=== PATIENT | female | born 1945 | race Asian ===

== ENCOUNTER 2017-12-02 15:09 | Emergency (ER) | payer MEDICARE ==
[~2017-12-02] VITALS: Ht 1555.5 cm; Wt 47.0 kg
[2017-12-02 16:10] LABS: BASOPHILS # (AUTO) 0.1 X10'3 (0-0.2); BASOPHILS % (AUTO) 1.7 % (0-1); EOSINOPHILS # (AUTO) 0.2 X10'3 (0-0.9); EOSINOPHILS % (AUTO) 8.3 % (0-6); LYMPHOCYTES # (AUTO) 0.9 X10'3 (1.1-4.8); LYMPHOCYTES % (AUTO) 29.6 % (21-51); MEAN CORPUSCULAR HEMOGLOBIN 31.7 PG (27.0-31.0); MEAN CORPUSCULAR HGB CONC 33.2 % (33.0-36.5); MEAN CORPUSCULAR VOLUME 95.3 FL (78-98); MEAN PLATELET VOLUME 9.1 FL (7.4-10.4); MONOCYTES # (AUTO) 0.3 X10'3 (0-0.9); MONOCYTES % (AUTO) 9.6 % (2-12); NEUTROPHILS # (AUTO) 1.5 X10'3 (1.8-7.7); NEUTROPHILS % (AUTO) 50.8 % (42-75); PLATELET COUNT 348 X10'3 (140-440); RED BLOOD COUNT 2.22 X10'6 (4.20-5.60); RED CELL DISTRIBUTION WIDTH 20.2 % (11.5-14.5)
[2017-12-02 16:19] LABS: HEMATOCRIT 21.2 % (35.0-45.0)
[2017-12-02 16:24] LABS: ALANINE AMINOTRANSFERASE 74 U/L (12-78); ALBUMIN 3.4 G/DL (3.4-5.0); ALBUMIN/GLOBULIN RATIO 1.5 (1.1-1.5); ALKALINE PHOSPHATASE 52 IU/L (46-116); ANION GAP 5 (8-16); ASPARTATE AMINO TRANSFERASE 53 U/L (10-37); BILIRUBIN,TOTAL 0.9 MG/DL (0.1-1.0); BLOOD UREA NITROGEN 10 MG/DL (7-18); BUN/CREATININE RATIO 16.7 (6.6-38.0); CALCIUM 8.5 MG/DL (8.5-10.1); CHLORIDE 105 MMOL/L (99-107); GLUCOSE 98 MG/DL (70-104); SODIUM 140 MMOL/L (135-145); TOTAL CARBON DIOXIDE 30.2 MMOL/L (24-32); TOTAL PROTEIN 5.7 G/DL (6.4-8.2); eGFR > 90 ML/MIN
[2017-12-02] MEDS ORDERED: CHOL2000 PO (16:24)
[2017-12-02] MEDS ORDERED: SYN0.088T PO (16:24)
[2017-12-02] MEDS ORDERED: [UNRECOGNIZED DRUG - CODE] IV (16:24)
[2017-12-02] MEDS ORDERED: LORA0.5T PO (16:24)
[2017-12-02 16:34] LABS: ETHANOL < 0.010 GM/DL (0.0-0.010)
[2017-12-02 16:42] LABS: TOTAL CELLS COUNTED 100
[2017-12-02 16:43] LABS: ANISOCYTOSIS 2+; PLATELET ESTIMATE NORMAL; POLYCHROMASIA 1+
[2017-12-02 16:44] LABS: POIKILOCYTOSIS FEW; SCHISTOCYTES FEW; TEAR DROP CELLS FEW
[2017-12-02 19:01] LABS: CLARITY,URINE SLIGHTLY CLOUDY (Clear); COLOR,URINE YELLOW (Yellow); GLUCOSE, URINE NEGATIVE (Neg); KETONES,URINE NEGATIVE (Neg); LEUKOCYTE ESTERASE ,URINE MODERATE (Neg); NITRITES, URINE NEGATIVE (Neg); OCCULT BLOOD,URINE TRACE-INTACT (Neg); PH,URINE 7.5 (4.8-8.0); PROTEIN,URINE NEGATIVE (Neg); UROBILINOGEN,URINE 0.2 E.U/dL (0.2-1.0)
[2017-12-02 19:06] LABS: URINE AMPHETAMINE SCREEN NEGATIVE (Neg); URINE BARBITUATE SCREEN NEGATIVE (Neg); URINE BENZODIAZEPINES SCREEN NEGATIVE (Neg); URINE CANNABINOID SCREEN NEGATIVE (Neg); URINE COCAINE SCREEN NEGATIVE (Neg); URINE METHADONE SCREEN NEGATIVE (Neg); URINE OPIATE SCREEN NEGATIVE (Neg); URINE PHENCYCLIDINE SCREEN NEGATIVE (Neg)
[2017-12-02 19:11] LABS: UA COLLECTION TYPE NON-SPECIFIED
[2017-12-02 19:12] LABS: BACTERIA,URINE 3+ /HPF (Neg); RBC,URINE 0-2 /HPF (0-2); SQUAMOUS EPITHELIAL CELL,UR FEW /LPF (FEW); WBC CLUMPS,URINE FEW /HPF (NEGATIVE)
[2017-12-03] MEDS ORDERED: RISP0.253 PO (05:09)
[2017-12-03 05:30] VITALS: BP 138/49
[2017-12-03] MEDS ORDERED: LORazepam 0.5 MG tablet PO PRN (07:00)
[2017-12-03 07:35] LABS: BASOPHILS % (AUTO) 1.5 % (0-1); EOSINOPHILS # (AUTO) 0.3 X10'3 (0-0.9); EOSINOPHILS % (AUTO) 12.1 % (0-6); LYMPHOCYTES # (AUTO) 0.7 X10'3 (1.1-4.8); LYMPHOCYTES % (AUTO) 33.4 % (21-51); MEAN CORPUSCULAR HEMOGLOBIN 31.8 PG (27.0-31.0); MEAN CORPUSCULAR HGB CONC 32.8 % (33.0-36.5); MEAN CORPUSCULAR VOLUME 97.1 FL (78-98); MEAN PLATELET VOLUME 9.3 FL (7.4-10.4); MONOCYTES # (AUTO) 0.2 X10'3 (0-0.9); MONOCYTES % (AUTO) 9.6 % (2-12); NEUTROPHILS # (AUTO) 0.9 X10'3 (1.8-7.7); NEUTROPHILS % (AUTO) 43.4 % (42-75); PLATELET COUNT 337 X10'3 (140-440); RED BLOOD COUNT 2.21 X10'6 (4.20-5.60); RED CELL DISTRIBUTION WIDTH 21.2 % (11.5-14.5); WHITE BLOOD COUNT 2.2 X10'3 (4.5-11.0)
[2017-12-03 07:54] LABS: ALANINE AMINOTRANSFERASE 66 U/L (12-78); ALBUMIN 3.2 G/DL (3.4-5.0); ALBUMIN/GLOBULIN RATIO 1.5 (1.1-1.5); ALKALINE PHOSPHATASE 50 IU/L (46-116); ANION GAP 1 (8-16); ASPARTATE AMINO TRANSFERASE 47 U/L (10-37); BILIRUBIN,TOTAL 1.1 MG/DL (0.1-1.0); BLOOD UREA NITROGEN 11 MG/DL (7-18); BUN/CREATININE RATIO 18.6 (6.6-38.0); CALCIUM 8.3 MG/DL (8.5-10.1); CHLORIDE 107 MMOL/L (99-107); CREATININE 0.59 MG/DL (0.40-0.90); GLUCOSE 108 MG/DL (70-104); POTASSIUM 4.5 MMOL/L (3.5-5.1); SODIUM 139 MMOL/L (135-145); TOTAL CARBON DIOXIDE 31.3 MMOL/L (24-32); TOTAL PROTEIN 5.4 G/DL (6.4-8.2); eGFR > 90 ML/MIN
[2017-12-03] MEDS ORDERED: levoTHYROXINE 88mcg tablet PO SCH (08:00)
[2017-12-03] MEDS ORDERED: vitamin D (cholecalciferol) 1,000 unit tablet PO SCH (08:00)
[2017-12-03] MEDS ORDERED: risperiDONE 0.25mg tablet PO SCH (08:00)
[2017-12-03 08:33] LABS: HEMATOCRIT 21.5 % (35.0-45.0)
[2017-12-03 08:43] LABS: TOTAL CELLS COUNTED 100
[2017-12-03 08:44] LABS: ANISOCYTOSIS 3+; LARGE PLATELETS FEW; PLATELET ESTIMATE NORMAL
[2017-12-03 08:45] LABS: ELLIPTOCYTES FEW; HYPOCHROMASIA 1+; MICROCYTOSIS FEW; POIKILOCYTOSIS FEW; POLYCHROMASIA 1+; SCHISTOCYTES FEW
[2017-12-03] MEDS ORDERED: nitrofuran/nitrofuran macrocrysal 100 MG capsule PO SCH (09:06)
[2017-12-04] MEDS ORDERED: normal saline 1000ml 1,000 ML IV SCH (09:07)
[2017-12-04] MEDS ORDERED: acetaminophen 325mg tablet PO PRN (09:10)
[2017-12-04] MEDS ORDERED: diphenhydrAMINE 25mg capsule PO PRN (09:10)
[2017-12-04] MEDS ORDERED: morphine 4 MG/ML inj SYRINge IV PRN ×2 (09:10)
[2017-12-04] MEDS ORDERED: HYDROcodone/acetaminophen 5mg/325mg tablet PO PRN (09:10)
[2017-12-04] MEDS ORDERED: acetaminophen 650mg rectal suppository RC PRN (09:10)
[2017-12-04] MEDS ORDERED: HYDROcodone/acetaminophen 10/325mg tab PO PRN (09:10)
[2017-12-04] MEDS ORDERED: diphenhydrAMINE 50 mg/ml inj IV PRN (09:10)
[2017-12-04] MEDS ORDERED: mag hydrox/Alum hydrox/simeth 30ml oral suspension PO PRN (09:10)
[2017-12-04] MEDS ORDERED: HYDROmorphone inj. 0.5 MG/0.5 ML DISP.SYRIN IV PRN ×2 (09:10)
[2017-12-04] MEDS ORDERED: bisacodyl 10mg suppository rectal RC PRN (09:10)
[2017-12-04] MEDS ORDERED: metoclopramide 5 mg/ml inj IV PRN (09:10)
[2017-12-04] MEDS ORDERED: ondansetron/PF 4mg/2ml inj IV PRN (09:10)
[2017-12-04] MEDS ORDERED: magnesium hydroxide 30ml (MOM) UD suspension PO PRN (09:10)
[2017-12-04] MEDS ORDERED: heparin, porcine 5000 units/ml vial SQ SCH (20:00)
[2017-12-04] MEDS ORDERED: docusate sod 100mg capsule PO SCH (20:00)
[2017-12-04] MEDS ORDERED: CefTRIAXone/D5W-Rocephin 1gm 50 ML IV SCH (20:00)
[2017-12-04] MEDS ORDERED: temazepam 15mg capsule PO PRN (21:00)
[2017-12-05] MEDS ORDERED: epoetin 20,000 units/ml inj IV SCH (09:00)
[2017-12-05] MEDS ORDERED: EPOETIN ALFA IV SCH (09:00)
== END 2017-12-03 17:08 ==
LOC: EDSEX 15:11 → ER 15:11
DX: F31.9 Bipolar disorder, unspecified (principal); D64.9 Anemia, unspecified; E03.9 Hypothyroidism, unspecified; Z79.899 Other long term (current) drug therapy
CPT/HCPCS: 36415; 80053; 80305; 80320; 81001; 83605; 84439; 84443; 85025; 87088; 99285

== ENCOUNTER 2017-12-03 15:46 | Inpatient (IN) | payer MEDICARE ==
[~2017-12-03] VITALS: Ht 157.5 cm; Wt 50.2 kg
[~2017-12-03 15:46] MED LIST: CHOL2000 PO; LORA0.5T PO; RISP0.253 PO; SYN0.088T PO; [UNRECOGNIZED DRUG - CODE] IV
[2017-12-03] MEDS ORDERED: magnesium hydroxide 30ml (MOM) UD suspension PO PRN (16:35)
[2017-12-03] MEDS ORDERED: acetaminophen 325mg tablet PO PRN ×2 (16:35)
[2017-12-03] MEDS ORDERED: mag hydrox/Alum hydrox/simeth 30ml oral suspension PO PRN (16:35)
[2017-12-03] MEDS ORDERED: LORazepam 0.5 MG tablet PO PRN (17:35)
[2017-12-03 17:42] VITALS: BP 152/56
[2017-12-03] MEDS: risperiDONE 0.25mg tablet PO SCH (19:31)
[2017-12-03 19:44] VITALS: BP 143/77
[2017-12-04] MEDS ORDERED: levoTHYROXINE 88mcg tablet PO SCH (07:00)
[2017-12-04 08:00] VITALS: BP 119/54
[2017-12-04] MEDS: nitrofuran/nitrofuran macrocrysal 100 MG capsule PO SCH ×2 (08:48→17:54)
[2017-12-04] MEDS: risperiDONE 0.25mg tablet PO SCH ×2 (08:48→20:40)
[2017-12-04] MEDS: vitamin D (cholecalciferol) 1,000 unit tablet PO SCH (08:48)
[2017-12-04 09:19] LABS: CHOL/HDL RATIO 3.3 (0.00-4.99); CHOLESTEROL 143 MG/DL (0-200); HDL CHOLESTEROL 44 MG/DL (35-60); LDL CHOLESTEROL 77 MG/DL (50-100); TRIGLYCERIDES 101 MG/DL (20-135)
[2017-12-04] MEDS: normal saline 1000ml 1,000 ML IV SCH ×2 (09:48→19:48)
[2017-12-04] MEDS ORDERED: ondansetron/PF 4mg/2ml inj IV PRN (09:50)
[2017-12-04] MEDS ORDERED: bisacodyl 10mg suppository rectal RC PRN (09:50)
[2017-12-04] MEDS ORDERED: diphenhydrAMINE 25mg capsule PO PRN (09:50)
[2017-12-04] MEDS ORDERED: EPOETIN ALFA IV SCH (09:50)
[2017-12-04] MEDS ORDERED: metoclopramide 5 mg/ml inj IV PRN (09:50)
[2017-12-04] MEDS ORDERED: magnesium hydroxide 30ml (MOM) UD suspension PO PRN (09:50)
[2017-12-04] MEDS ORDERED: acetaminophen 650mg rectal suppository RC PRN (09:50)
[2017-12-04] MEDS ORDERED: morphine 4 MG/ML inj SYRINge IV PRN ×2 (09:50)
[2017-12-04] MEDS ORDERED: HYDROcodone/acetaminophen 5mg/325mg tablet PO PRN (09:50)
[2017-12-04] MEDS ORDERED: acetaminophen 325mg tablet PO PRN (09:50)
[2017-12-04] MEDS ORDERED: HYDROmorphone inj. 0.5 MG/0.5 ML DISP.SYRIN IV PRN ×2 (09:50)
[2017-12-04] MEDS ORDERED: mag hydrox/Alum hydrox/simeth 30ml oral suspension PO PRN (09:50)
[2017-12-04] MEDS ORDERED: HYDROcodone/acetaminophen 10/325mg tab PO PRN (09:50)
[2017-12-04] MEDS ORDERED: LORazepam 0.5 MG tablet PO PRN (09:50)
[2017-12-04] MEDS ORDERED: diphenhydrAMINE 50 mg/ml inj IV PRN (09:50)
[2017-12-04 12:17] LABS: CREATINE KINASE 43 U/L (26-192); LIPASE 210 U/L (73-393); MAGNESIUM 1.8 MG/DL (1.5-2.4); PHOSPHORUS 4.1 MG/DL (2.3-4.5)
[2017-12-04 20:01] VITALS: BP 147/62
[2017-12-04] MEDS: lactobacillus rhamnosus 10,000 MMU CELLS/CAPSULE PO SCH (20:39)
[2017-12-04] MEDS: docusate sod 100mg capsule PO SCH (20:39)
[2017-12-04] MEDS ORDERED: temazepam 15mg capsule PO PRN (21:00)
[2017-12-05] MEDS: normal saline 1000ml 1,000 ML IV SCH (05:48)
[2017-12-05] MEDS ORDERED: pantoprazole 40mg Tablet.DR PO SCH (07:30)
[2017-12-05 08:00] VITALS: BP 134/63
[2017-12-05] MEDS ORDERED: levoTHYROXINE 88mcg tablet PO SCH (08:00)
[2017-12-05] MEDS ORDERED: non-formulary drug (Cholecalciferol (Vitamin D3) (Vitamin D-3) 2,000 UNIT) PO SCH (08:00)
[2017-12-05] MEDS ORDERED: levoTHYROXINE 100mcg tablet PO SCH (08:00)
[2017-12-05] MEDS: lactobacillus rhamnosus 10,000 MMU CELLS/CAPSULE PO SCH (08:15)
[2017-12-05] MEDS: risperiDONE 0.25mg tablet PO SCH (08:16)
[2017-12-05] MEDS: docusate sod 100mg capsule PO SCH (08:16)
[2017-12-05] MEDS: vitamin D (cholecalciferol) 1,000 unit tablet PO SCH (08:16)
[2017-12-05] MEDS: nitrofuran/nitrofuran macrocrysal 100 MG capsule PO SCH (08:16)
[2017-12-05] MEDS ORDERED: epoetin 20,000 units/ml inj SQ SCH (09:00)
[2017-12-05 10:04] LABS: BASOPHILS % (AUTO) 1.5 % (0-1); EOSINOPHILS # (AUTO) 0.2 X10'3 (0-0.9); LYMPHOCYTES # (AUTO) 0.7 X10'3 (1.1-4.8); LYMPHOCYTES % (AUTO) 27.5 % (21-51); MEAN CORPUSCULAR HEMOGLOBIN 32.5 PG (27.0-31.0); MEAN CORPUSCULAR HGB CONC 33.9 % (33.0-36.5); MEAN CORPUSCULAR VOLUME 95.8 FL (78-98); MEAN PLATELET VOLUME 9.3 FL (7.4-10.4); MONOCYTES # (AUTO) 0.2 X10'3 (0-0.9); MONOCYTES % (AUTO) 9.6 % (2-12); NEUTROPHILS # (AUTO) 1.3 X10'3 (1.8-7.7); NEUTROPHILS % (AUTO) 54.4 % (42-75); PLATELET COUNT 394 X10'3 (140-440); RED BLOOD COUNT 2.11 X10'6 (4.20-5.60); RED CELL DISTRIBUTION WIDTH 22.2 % (11.5-14.5); WHITE BLOOD COUNT 2.4 X10'3 (4.5-11.0)
[2017-12-05 10:07] LABS: HEMATOCRIT 20.2 % (35.0-45.0); HEMOGLOBIN 6.9 g/dl (12.0-16.0)
[2017-12-05 11:25] LABS: TRIIODOTHYRONINE (T3) 59 ng/dL (71-180)
[2017-12-05 12:21] LABS: TOTAL CELLS COUNTED 100
[2017-12-05 12:22] LABS: PLATELET ESTIMATE NORMAL
[2017-12-05 12:23] LABS: ANISOCYTOSIS 3+; MICROCYTOSIS FEW
[2017-12-05 12:24] LABS: ELLIPTOCYTES FEW; HYPOCHROMASIA 1+; POLYCHROMASIA FEW; SCHISTOCYTES FEW
[2017-12-05 12:25] LABS: LARGE PLATELETS MODERATE
== END 2017-12-05 12:50 | disposition still patient (30) | DRG 885 ==
LOC: ADULT MH 15:46
PROVIDERS: ADMIT Psychiatry & Neurology Psychiatry; ATTEND Psychiatry & Neurology Psychiatry
PROC: BW251ZZ Computerized Tomography (CT Scan) of Chest, Abdomen and Pelvis using Low Osmolar Contrast (ICD-10-PCS; principal; 2017-12-04)
DX: F29 Unspecified psychosis not due to a substance or known physiological condition (principal); N39.0 Urinary tract infection, site not specified; D64.9 Anemia, unspecified; I10 Essential (primary) hypertension; E03.9 Hypothyroidism, unspecified; F31.9 Bipolar disorder, unspecified; K59.00 Constipation, unspecified; R41.89 Other symptoms and signs involving cognitive functions and awareness; Z79.899 Other long term (current) drug therapy
CPT/HCPCS: 36415; 71250; 74176; 80061; 82550; 82668; 83036; 83690; 83735; 83880; 84100; 84479; 84480; 85025; 86870; 86885; 86900; 86901; 86902; 86905; 86922; 87070; 99285; J0885; J2270; J7030

== ENCOUNTER 2017-12-05 12:39 | Observation (INO) | payer MEDICARE ==
[2017-12-05] VITALS (7 sets, daily range): BP systolic 126–142; BP diastolic 41–61
[2017-12-05] MEDS ORDERED: mag hydrox/Alum hydrox/simeth 30ml oral suspension PO PRN (15:40)
[2017-12-05] MEDS ORDERED: magnesium hydroxide 30ml (MOM) UD suspension PO PRN (15:40)
[2017-12-05] MEDS ORDERED: ondansetron/PF 4mg/2ml inj IV PRN (15:40)
[2017-12-05] MEDS ORDERED: acetaminophen 325mg tablet PO PRN (15:40)
[2017-12-05] MEDS ORDERED: EPOETIN ALFA IV SCH (18:10)
[2017-12-05] MEDS: risperiDONE 0.25mg tablet PO SCH (21:13)
[2017-12-05] MEDS: LORazepam 0.5 MG tablet PO PRN (23:57)
[2017-12-06 00:37] VITALS: BP 137/62
[2017-12-06 01:56] VITALS: BP 147/53
[2017-12-06 07:30] VITALS: BP 144/71
[2017-12-06 08:30] LABS: BASOPHILS % (AUTO) 0.5 % (0-1); EOSINOPHILS # (AUTO) 0.4 X10'3 (0-0.9); EOSINOPHILS % (AUTO) 8.8 % (0-6); HEMATOCRIT 34.8 % (35.0-45.0); HEMOGLOBIN 11.5 g/dl (12.0-16.0); LYMPHOCYTES # (AUTO) 1.1 X10'3 (1.1-4.8); LYMPHOCYTES % (AUTO) 28.6 % (21-51); MEAN CORPUSCULAR HEMOGLOBIN 31.5 PG (27.0-31.0); MEAN CORPUSCULAR HGB CONC 33.2 % (33.0-36.5); MEAN CORPUSCULAR VOLUME 94.8 FL (78-98); MEAN PLATELET VOLUME 9.3 FL (7.4-10.4); MONOCYTES # (AUTO) 0.4 X10'3 (0-0.9); NEUTROPHILS # (AUTO) 2.1 X10'3 (1.8-7.7); NEUTROPHILS % (AUTO) 52.1 % (42-75); PLATELET COUNT 398 X10'3 (140-440); RED BLOOD COUNT 3.67 X10'6 (4.20-5.60); RED CELL DISTRIBUTION WIDTH 15.7 % (11.5-14.5)
[2017-12-06] MEDS: levoTHYROXINE 88mcg tablet PO SCH (08:43)
[2017-12-06] MEDS: vitamin D (cholecalciferol) 1,000 unit tablet PO SCH (08:43)
[2017-12-06] MEDS: risperiDONE 0.25mg tablet PO SCH ×2 (08:43→20:26)
[2017-12-06 12:00] VITALS: BP 152/60
[2017-12-06 12:07] LABS: PLATELET ESTIMATE NORMAL
[2017-12-06 12:08] LABS: ANISOCYTOSIS 3+; POLYCHROMASIA 1+
[2017-12-06 12:09] LABS: ELLIPTOCYTES FEW; HYPOCHROMASIA 1+; SCHISTOCYTES FEW
[2017-12-06 12:10] LABS: MICROCYTOSIS FEW
[2017-12-06 20:00] VITALS: BP 160/67
[2017-12-07 00:12] VITALS: BP 150/55
[2017-12-07 04:32] LABS: HEMATOCRIT 30.9 % (35.0-45.0); HEMOGLOBIN 10.4 g/dl (12.0-16.0); MEAN CORPUSCULAR HEMOGLOBIN 31.4 PG (27.0-31.0); MEAN CORPUSCULAR HGB CONC 33.8 % (33.0-36.5); MEAN CORPUSCULAR VOLUME 92.9 FL (78-98); MEAN PLATELET VOLUME 9.9 FL (7.4-10.4); PLATELET COUNT 330 X10'3 (140-440); RED BLOOD COUNT 3.32 X10'6 (4.20-5.60); WHITE BLOOD COUNT 2.8 X10'3 (4.5-11.0)
[2017-12-07 07:00] VITALS: BP 130/63
[2017-12-07] MEDS: vitamin D (cholecalciferol) 1,000 unit tablet PO SCH (07:52)
[2017-12-07] MEDS: levoTHYROXINE 88mcg tablet PO SCH (07:52)
[2017-12-07] MEDS: risperiDONE 0.25mg tablet PO SCH (07:52)
[2017-12-07] MEDS: LORazepam 0.5 MG tablet PO PRN (08:01)
== END 2017-12-07 09:45 | disposition home or self-care (01) ==
LOC: INTOOBSV 12:56 → SUR 3N 12:56
PROVIDERS: ADMIT Family Medicine; ATTEND Family Medicine
DX: D64.9 Anemia, unspecified (principal); F29 Unspecified psychosis not due to a substance or known physiological condition
CPT/HCPCS: 36415; 36430; 85025; 85027; 86870; 86885; 86900; 86901; 86902; 86922; G0378; J7030; P9016

== ENCOUNTER 2019-04-16 05:49 | Day surgery (SDC) | payer MEDICARE ==
[~2019-04-16] VITALS: Ht 157.5 cm; Wt 50.3 kg
[2019-04-16] MEDS ORDERED: coumadin (06:24)
[2019-04-16] MEDS ORDERED: CARV3.122 PO (06:24)
[2019-04-16] MEDS ORDERED: BENZ1TAB7 PO (06:24)
[2019-04-16] MEDS ORDERED: DONE5TAB7 PO (06:24)
[2019-04-16] MEDS ORDERED: LISI-604 PO (06:24)
[2019-04-16] MEDS ORDERED: DIGO125T97 PO (06:24)
[2019-04-16 06:42] VITALS: BP 106/59
[2019-04-16 09:47] LABS: BFSOURCE LEFT PLEURAL FLD; PLEURAL FLUID PH 7.436 (7.63-7.65)
[2019-04-16 10:03] LABS: ALBUMIN,BODY FLUID 1.1 G/DL; LDH,BODY FLUID 45 U/L
[2019-04-16 10:32] LABS: TOTAL PROTEIN,BODY FLUID < 2.0 G/DL
[2019-04-16 11:59] LABS: BFAPPEAR CLEAR; BFCOLOR YELLOW; BFVOLUME 60 ML
[2019-04-16 12:00] LABS: BF RBC COUNT 87 /CU MM; BF WBC COUNT 109 /CU MM (0-1000); EOSINOPHILS,BODY FLUID 2 %; LYMPHOCYTES,BODY FLUID 76 %; MONOCYTES,BODY FLUID 21 %; NEUTROPHILS,BODY FLUID 1 %
[2019-04-16 12:02] LABS: BF MESOTHELIAL CELLS FEW
== END 2019-04-16 09:15 | disposition home or self-care (01) ==
LOC: SSTAY O 05:49
PROVIDERS: ATTEND Radiology Diagnostic Radiology
DX: J90 Pleural effusion, not elsewhere classified (principal); E03.9 Hypothyroidism, unspecified; I11.0 Hypertensive heart disease with heart failure; I50.9 Heart failure, unspecified; F31.9 Bipolar disorder, unspecified; I48.91 Unspecified atrial fibrillation; E78.5 Hyperlipidemia, unspecified; D46.9 Myelodysplastic syndrome, unspecified; Z98.49 Cataract extraction status, unspecified eye; Z98.890 Other specified postprocedural states; Z79.01 Long term (current) use of anticoagulants; Z79.899 Other long term (current) drug therapy
CPT/HCPCS: 32555; 71045; 82042; 83615; 83986; 84157; 87070; 89051; C1729; 88108; 88305

== ENCOUNTER 2019-06-14 05:54 | Day surgery (SDC) | payer MEDICARE ==
[~2019-06-14] VITALS: Ht 157.5 cm; Wt 53.6 kg
[2019-06-14] VITALS (7 sets, daily range): BP systolic 114–127; BP diastolic 69–87
[~2019-06-14 05:54] MED LIST changes: +BENZ1TAB7 PO; +CARV3.122 PO; +DIGO125T97 PO; +DONE5TAB7 PO; +LISI-604 PO; +coumadin
[2019-06-14] MEDS ORDERED: COU2.5T PO (06:39)
== END 2019-06-14 09:10 | disposition home or self-care (01) ==
LOC: SSTAY O 05:54
PROVIDERS: ATTEND Radiology Diagnostic Radiology
DX: J90 Pleural effusion, not elsewhere classified (principal); E03.9 Hypothyroidism, unspecified; F31.9 Bipolar disorder, unspecified; I11.0 Hypertensive heart disease with heart failure; I50.9 Heart failure, unspecified; I48.91 Unspecified atrial fibrillation; E78.5 Hyperlipidemia, unspecified; Z98.890 Other specified postprocedural states; Z79.01 Long term (current) use of anticoagulants; Z79.899 Other long term (current) drug therapy
CPT/HCPCS: 32555; 36415; 71045; 85610; C1729